=== PATIENT | female | born 2000 | race Caucasian/White ===

== ENCOUNTER 2025-01-20 17:42 | Emergency (ER) | payer OTHER, SELFPAY ==
[2025-01-20 17:47] VITALS: BP 123/80
[2025-01-20 18:20] LABS: % Basophils 0.4 % (0-2); % Eosinophils 1.3 % (0-6); % Immature Granulocytes 0.3 % (0-0.5); % Monocytes 5.5 % (1.7-9.3); % Neutrophils 75.5 % (42.2-75.2); Absolute Basophils 0.1 10^3/uL (0-0.2); Absolute Eosinophils 0.2 10^3/uL (0-0.7); Absolute Lymphocytes 2.4 10^3/uL (1.2-3.4); Absolute Monocytes 0.8 10^3/uL (0.1-0.6); Absolute Neutrophils 10.8 10^3/uL (1.4-6.5); Hematocrit 42.9 % (37.0-47.0); Hemoglobin 14.6 g/dL (12.0-16.0); Mean Corpuscular Hgb 29.9 pg (27.0-31.0); Mean Corpuscular Volume 87.7 fL (81.0-99.0); Nucleated Red Blood Cells % 0 %; Platelet Count 248 10^3/uL (130-400); Red Blood Cell Count 4.89 10^6/uL (4.20-5.40); Red Cell Dist. Width 12.4 % (11.5-14.5); White Blood Cell Count 14.3 10^3/uL (4.8-10.8)
[2025-01-20 18:29] LABS: HCG, Serum Qualitative Screen Negative
[2025-01-20 18:31] LABS: COVID-19 Antigen Negative (Negative)
[2025-01-20 18:35] LABS: ALT (SGPT) 33 U/L (0-35); AST (SGOT) 31 U/L (14-36); Albumin 4.6 g/dl (3.5-5.0); Alkaline Phosphatase 94 U/L (38-126); Blood Urea Nitrogen 9 mg/dl (7-17); Calcium 9.8 mg/dl (8.4-10.2); Carbon Dioxide 26 mmol/L (22-30); Chloride 101 mmol/L (98-107); Glucose 95 mg/dl (70-99); Sodium 137 mmol/L (135-145); Total Protein 7.4 g/dl (6.3-8.2); eGFR > 60.00
[2025-01-20 18:36] LABS: Lipase 55 U/L (23-300)
[2025-01-20 19:55] VITALS: BP 142/76
--- NOTE | 2025-01-20 20:34 | ED.GENMED ---
History of Present Illness
General
Chief Complaint: Abdominal Symptoms
Source: patient
Exam Limitations: none
Time Seen by Provider: 01/20/25 20:26
History of Present Illness
History of Present Illness:
24-year-old female complaining of about 1 week of feeling off. Mostly complaining of some nausea episodes of diarrhea usually about 2/day that are very watery. Symptoms started last Monday. She returned from a trip to [place] at that time.
She has a very minimal occasional cough. However no shortness of breath no chest pain no pleuritic pain no leg pain no leg swelling. She has no rash. No one else is ill at home. She did have a tampon in 2 days prior to onset of symptoms that was
left in for 30 hours however she is sure she removed it. It did not have a malodorous smell and she has no vaginal discharge bleeding or pelvic pain at this time.
Past History
Past History
ED Past Medical History: Psychiatric (Depression) and Other (Hemangioma)
ED Past Surgical History: Tonsilectomy and Other ([place] teeth)
Social History
Tobacco: Non-smoker
Personal: Single
Phy Exam
Physical Exam
Physical Exam:
GENERAL: Alert and oriented in no apparent distress
EYE: Orbits normal.
NECK: Supple, no significant adenopathy.
ENT: Pharynx without erythema
CARDIAC: Regular rate and rhythm without any obvious murmurs.
LUNGS: Clear breath sounds,normal
ABDOMEN: Soft, without focal tenderness or distention. No CVA tenderness
NEUROLOGICAL: Alert and oriented , grossly non-focal
SKIN: Warm and dry, no rash or lesion, no discoloration, skin intact.
MUSCULOSKELETAL: No edema,no deformity.Good color
PSYCH: Normal and appropriate interaction.
Course
Orders/Labs/Results
Orders:
Orders
01/20/25 17:52
Test Result ONCE
01/20/25 18:04
COVID-19 Antigen Urgent
Source: Nasal Swab
Complete Blood Count/With Diff Urgent
Comprehensive Metabolic Panel Urgent
HCG, Serum Qualitative Screen Urgent
Comment: Notify provider if positive test present
Lipase Urgent
Influenza A+B Rapid Molecular Urgent
RUTH ANN Source: Nasal Swab
Specimen Description:
01/20/25 20:34
CXR2 [CR Chest - 2 Views ] Urgent
Comment:
Reason For Exam: Cough/leukocytosis
US Abdomen Complete/Upper Urgent
Comment:
Reason For Exam: Vague mid abdominal pain with leukocytosis
01/20/25 21:16
Urinalysis Reflex To Culture Urgent
Date Specimen was Collected: 01/20/25
Time Specimen was Collected: 21:15
Abnormal Lab Results
01/20/25
18:04
WBC 14.3 H 10^3/uL
(4.8-10.8)
Absolute Neuts (auto) 10.8 H 10^3/uL
(1.4-6.5)
Absolute Monos (auto) 0.8 H 10^3/uL
(0.1-0.6)
Neutrophils % 75.5 H %
(42.2-75.2)
Lymphocytes % 17.0 L %
(20.5-51.1)
01/20/25 18:04
01/20/25 18:04
Vital Signs
Initial and Last Documented VS:
Initial Vital Signs
Temp Pulse Resp BP Pulse Ox
98.1 F 97 16 123/80 99
01/20/25 17:47 01/20/25 17:47 01/20/25 17:47 01/20/25 17:47 01/20/25 17:47
Last Documented Vital Signs
Temp Pulse Resp BP Pulse Ox
97.9 F 65 20 126/76 100
01/20/25 23:00 01/20/25 23:00 01/20/25 23:00 01/20/25 23:00 01/20/25 23:02
MDM/Problems Addressed
Differential Diagnosis Includes:
Patient describing vague ongoing symptoms that are mostly GI related. Describing a colitis or enteritis. Nothing to support a significant respiratory issue. Her lungs are clear. Except for the flights she has no issues that would make pulmonary
emboli suspicious. She denies chest pain shortness of breath leg pain leg swelling. She has no risk factors. Her heart rate and pulse ox are normal. Nothing to support an acute surgical issue. Since she mention the tampon, this was also
entertained. However she has no rash she has no fever she has no vaginal discharge she is sure she removed the tampon. We will check a urine chest x-ray with the very minimal cough although she had no cough while I was in the room. Also will
check a abdominal ultrasound as a screen.
*Radiology
Radiology exam reviewed: radiology read reviewed (Negative x-ray. Negative ultrasound)
*Pulse Oximetry
Patient hypoxic: no
*Critical Care Note
Total Time (30-74mins, 75-104mins- exclusive of procedures): Not Applicable
Update Note
Update Note:
Patient is remained stable and nontoxic. No serious issue found clinically. Nonspecific leukocytosis. Stable for discharge and outpatient follow-up
ED Attending Note
-
Portions of this chart may have been created with voice recognition software.� Occasional wrong word or��sound alike� substitutions may have occurred due to the inherent limitations of voice recognition software.
Discharge Plan
Departure
Patient Disposition: Home (Routine Discharge)
Date of Disposition: 01/20/25
Time of Disposition: 22:51
Patient with high blood pressure during this ER visit?: Yes
Discharge Problem:
Nausea/diarrhea
Instructions: Constipation, Adult (DC), Nausea and Vomiting, Adult (DC), BLOOD PRESSURE
Prescriptions:
No Action
No Current Medications
0
Referrals:
NONE,* [Family Provider] -
Activity Restrictions/Additional Instructions:
Stay well-hydrated
Recheck if symptoms persist for the next 2 to 3 days, progressed any other new symptoms or if not resolved in this time.
Interventions
Interventions:
*Risk Screen - Suicide Last Done: 01/20/25 17:47
*General Assessment Last Done: 01/20/25 17:47
*Neglect/Abuse Screening Last Done: 01/20/25 17:47
*ED- Fall Risk Assessment Last Done: 01/20/25 21:07
*ED COVID-19 Vaccine History Last Done: 01/20/25 21:07
*Nursing Disposition Last Done: 01/20/25 23:02
BF-Mllznn-Akbbrpdaui Assessment Last Done: 01/20/25 21:07
Discharge Date and Time
Discharge Date/Time: 01/20/25 23:03
Print Language: SYRIAC
[2025-01-20 20:50] VITALS: BMI 38.4
[2025-01-20 21:00] VITALS: BP 133/66
[2025-01-20 21:28] LABS: Urine Albumin Negative (Neg - Trace); Urine Bilirubin Negative (Negative); Urine Character Clear (Clear); Urine Color Yellow; Urine Glucose Negative (Negative); Urine Ketone Negative (Negative); Urine Leukocyte Negative (Negative); Urine Nitrite Negative (Negative); Urine Occult Blood Negative (Negative); Urine Urobilinogen Negative (Neg - 1+)
[2025-01-20 23:00] VITALS: BP 126/76
== END 2025-01-20 23:03 | disposition home or self-care (01) ==
LOC: EMR 17:42
PROVIDERS: Emergency Medicine; EMERGENCY PHYSICIAN Emergency Medicine
DX: R11.0 Nausea (principal); R19.7 Diarrhea, unspecified; D72.829 Elevated white blood cell count, unspecified
CPT/HCPCS: 99284; 71046; 76700; 80053; 81003; 83690; 84703; 85025; 87502; 87811